=== PATIENT | male | born 1935 | race Caucasian/White ===

== ENCOUNTER 2016-04-10 07:37 | Day surgery (SDC) | payer MEDICARE, OTHER ==
[~2016-04-10] VITALS: Ht 170.2 cm; Wt 95.2 kg
[~2016-04-10 07:37] MED LIST: ASCO100089 PO; CHOL10008 PO; LEVO50TA6 PO; Lactated Ringer's 1,000 ML IV ONE; MULT1CAP33 PO; PRAV80TA2 PO; VITA400T9 PO; ZLP5T PO
[2016-04-10] MEDS ORDERED: Propofol 10,000 mCg/mL 20 mL Inj ONE (07:38)
[2016-04-10 08:01] VITALS: BP 132/85; PULSE 88; RESP 14; O2SAT 99
[2016-04-10] MEDS ORDERED: Lactated Ringer's 1,000 ML IV SCH (08:57)
[2016-04-10] MEDS ORDERED: Ondansetron 2 mg/mL 2 mL Inj IVPUSH PRN (09:00)
[2016-04-10] MEDS ORDERED: MetoCLOpramide 5 mg/mL 2 mL Inj IVPUSH PRN (09:00)
[2016-04-10 09:45] VITALS: BP 114/66; PULSE 72; RESP 14; O2SAT 98
[2016-04-10 09:59] VITALS: BP 107/63; PULSE 70; RESP 14; O2SAT 100
[2016-04-10 10:07] VITALS: BP 107/63; PULSE 66; RESP 14; O2SAT 96
--- NOTE | 2016-04-10 10:07 | ENDO ---
[address] [address] ENDOSCOPY PROCEDURE PATIENT: MANDIE MONTERO : 1935 MR#: [id number] ADMIT: 04/10/2016 JOB ID: [id number] DATE OF SERVICE: 04/10/2016 PRIMARY PROVIDER: Derrick Aldana MD. PROCEDURE: Colonoscopy with hot snare polypectomy, cold snare polypectomy and cold forceps polypectomy. INDICATIONS: An 81-year-old male with a history of colon cancer and right hemicolectomy. He also has a history of colon polyps. Surveillance is pursued. EQUIPMENT: [id number]. SEDATION: Monitored anesthesia as provided by Dr. Atul Villeda. COMPLICATIONS: None identified. BOWEL PREPARATION: Fair, adequate exam. PROCEDURE INFORMATION: After the risks and benefits were explained, written and verbal informed consent was obtained. The patient was brought into the endoscopy suite and placed into the left lateral decubitus position. Sedation was achieved using the above-stated medications with the addition of oxygen via nasal cannula. A digital rectal examination was accomplished. No significant pathology appreciated. The scope was introduced into the rectum and advanced under direct visualization to the right hemicolectomy anastomosis. The scope was then slowly withdrawn to carefully examine the mucosa for any defects or lesions. Multiple direct views were made through the dentate line for exclusion of pathology. The colon was decompressed. The scope removed from the patient who tolerated the procedure well. FINDINGS: At the anastomosis on some small bowel mucosa, I could see a small, perhaps 4 mm polyp removed with cold forceps. Otherwise, the anastomosis appeared normal without any pathology. In the right colon just distal to the anastomosis was a diminutive polyp, removed with cold forceps. There were then two other small polyps in the transverse colon. One removed with cold snare, one with hot snare. The largest of these two polyps was perhaps 5-6 mm. No other significant pathology was appreciated throughout. ENDOSCOPIC DIAGNOSES: 1. Colon polyps. 2. Right hemicolectomy anastomosis. RECOMMENDATIONS: 1. Await histopathology. 2. Based on personal history of colon cancer, colon polyps, if the patient remains in overall excellent health, repeat colonoscopy could be considered in three years.
--- NOTE | 2016-04-10 14:37 | PCM.ANEP1 ---
Post Anesthesia Phase 1 PACU Phase 1 Assessment Vital Signs Vital Signs Date Time Temp Pulse Resp B/P Pulse Ox O2 Delivery O2 Flow Rate FiO2 04/10/16 10:07 66 14 107/63 96 Room Air 04/10/16 09:59 70 14 107/63 100 Room Air 04/10/16 09:45 36.6 72 14 114/66 98 Room Air 04/10/16 08:01 36.4 88 14 132/85 99 Room Air Anesthetic Administered: MAC Level of Alertness: Awake, talking VELARDE's with Equal Strength: Yes Pain: No Nausea or Vomiting: No Oxygen Delivery: Room Air Lungs: Clear to Auscultation, Normal Air Movement Dermatome Level: Full Sensation Atul Villeda MD Apr 10, 2016 14:37
--- NOTE | 2016-04-10 14:37 | PCM.HPANE ---
Patient Data Surgeon Admitting Provider: Attending Provider:Wali Smith MD Primary Care Physician:Derrick Aldana MD Other Provider:Gala Kennedyingham Anesthesia Reason for Visit Colon Polyps Ht/WT & BMI Body Mass Index Allergies Coded Allergies: atorvastatin (Verified Allergy, Unknown, 04/06/16) venlafaxine (Verified Allergy, Unknown, 04/06/16) Past Anesthesia History Anesthesia History: Denies:: Abnormal Airway, Difficult Intubation Diabetes History Hx Diabetes?: No MRSA MRSA: No Medications Reported Medications Vitamin E Mixed (Vitamin E)400 Unit Tablet1,200 Unit PO DAILY 04/06/16 Cholecalciferol (Vitamin D3) (Vitamin D3)1,000 Unit Tab.chew1,000 Unit PO DAILY 04/06/16 Ascorbic Acid (Vitamin C)1,000 Mg Tab.chew1,000 Mg PO DAILY Ref 0 04/06/16 Pravastatin 80 Mg [id number] Mg PO HS Ref 0 04/06/16 Multivitamin (Multivitamins)1 Each Capsule1 Each PO DAILY 04/06/16 Levothyroxine 50 Mcg [id number] Mcg PO DAILY Ref 0 04/06/16 Zolpidem (Ambien)5 Mg Tablet5 Mg PO HS PRN For Insomnia Ref 0 04/06/16 History HEENT History: Denies:: Abnormal Airway Difficult Intubation Hearing Problem Hx of Heart Problems?: No Hx of Respiratory Problem?: No Neurological History: Denies:: CVA Hx of GI Problems?: Yes Psycho Social History: Positive for:: Hx Depression (Paxil) Hx Surgeries?: Yes (colon resection, leg,tosillectomy, gall badder, appendectomy,) Hx Any Other Health Problems?: Yes Hx Diabetes: No Hx Alcohol Use: No Stop/Bang Risk Assessment Category Category 1A: Patient has history of documented sleep apnea, and HAS NOT received any narcotic, sedative or anesthesia administration during this stay. Category 1B: Patient has history of documented sleep apnea, and HAS received any narcotic , sedative or anesthesia administration during this stay Category 2: Patient has SUSPECTED Obstructive Sleep Apnea, and HAS received any narcotic , sedative or anesthesia administration during this stay. Category 3: Patient has SUSPECTED Obstructive Sleep Apnea and HAS NOT received narcotic, sedative or anesthesia administration during this stay. Category 4: Outpatient in Procedural Areas with known sleep apnea or who screen positive for High Risk via the STOP/BANG questionnaire. Exam Exam General Appearance: Alert, Oriented X3, Cooperative, No Acute Distress HEENT/AIRWAY: MP 2 Lungs: Clear to Auscultation, Normal Air Movement Heart: Exam Unremarkable, Regular Rate/Rhythm, No Murmurs/Rubs/Gallops Plan Impression Patient chart reviewed, patient interviewed and anesthestic plan with risks, benefits, and alternatives discussed, and informed consent obtained. NPO Status: > 8HRS ASA Physical Status: ASA2 Mod Systemic Disease Anesthetic Plan: MAC Bene/Risks/Altern/Consents: Yes HP Complete Prior to Induction: Yes Atul Villeda MD Apr 10, 2016 07:31
--- NOTE | 2016-04-10 14:37 | PCM.ANEP2 ---
Post Anesthesia Evaluation ASA/CMS Post Anesthesia VS in Patient's Normal Range?: Yes Resp Stable; Airway Patent?: Yes CV Function & Hydration Stable: Yes Mental Status Recovered?: Yes Pain control Satisfactory?: Yes N/V Control Satisfactory?: Yes Atul Villeda MD Apr 10, 2016 14:37
--- NOTE | 2016-04-11 12:33 | PATH ---
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 2.COLON POLYPS: TUBULAR ADENOMA INVOLVING THREE BIOPSY FRAGMENTS. ICD10 CODE D12.6 GROSS DESCRIPTION: The specimen is received in two formalin filled containers labeled with the patient's name. 1). The specimen is sublabeled "anastomotic polyp" and consists of a 0.3 x 0.3 x 0.3 CM portion of tissue which is entirely submitted in cassette 1A. 2). The specimen is sublabeled "colon polyps x3" and consists of 3 portions of tissue which aggregate to follow 0.5 x 0.3 CM. The specimen is entirely submitted in cassette 2A. 04/10/2016 [facility] MICRO DESCRIPTION: See diagnosis. ICD-9 CODES: CPT CODES: 1: 81373 2: 91255 Electronically Signed Out Wali Amaya MD [facility] Pathology [facility] [address] [place] [address] Technical component performed at [facility], [address] [place] [address] [address], [place], [address]
== END 2016-04-10 23:59 | disposition home or self-care (01) ==
LOC: END 07:37
PROVIDERS: ATTEND Internal Medicine Gastroenterology
DX: Z12.11 Encounter for screening for malignant neoplasm of colon (principal); Z86.010 Personal history of colon polyps; D12.3 Benign neoplasm of transverse colon; D12.6 Benign neoplasm of colon, unspecified; K43.9 Ventral hernia without obstruction or gangrene; G47.33 Obstructive sleep apnea (adult) (pediatric); E03.9 Hypothyroidism, unspecified; F41.9 Anxiety disorder, unspecified; E78.5 Hyperlipidemia, unspecified; Z96.651 Presence of right artificial knee joint; Z90.49 Acquired absence of other specified parts of digestive tract
CPT/HCPCS: 45380; 45385; 88305; J7120